=== PATIENT | male | born 1985 | race Caucasian/White ===

== ENCOUNTER 2016-10-03 17:28 | Emergency (ER) | payer SELFPAY ==
[~2016-10-03] VITALS: Ht 170.2 cm; Wt 71.3 kg
[~2016-10-03 17:28] MED LIST: BUTA1CAP57 PO
[2016-10-03] MEDS ORDERED: LORazepam 1MG TABLET PO ONE (18:30)
[2016-10-03] MEDS ORDERED: LORazepam 1MG TABLET ONE (18:42)
[2016-10-03 18:45] LABS: BLOOD UREA NITROGEN 8 mg/dL (7-18)
[2016-10-03 18:48] VITALS: BP 120/67
[2016-10-03 18:49] LABS: IS PT STATUS REG ER OR PRE ER? YES
[2016-10-03] MEDS ORDERED: POTASSIUM CHLORIDE 20 MEQ TAB.ER.PRT ONE (19:10)
[2016-10-03] MEDS ORDERED: POTASSIUM CHLORIDE 20 MEQ TAB.ER.PRT PO ONE (19:30)
== END 2016-10-03 19:45 | disposition home or self-care (01) ==
LOC: ED 19:36
DX: F41.1 Generalized anxiety disorder (principal); R06.4 Hyperventilation; E87.6 Hypokalemia; J45.909 Unspecified asthma, uncomplicated; Z87.891 Personal history of nicotine dependence
CPT/HCPCS: 36415; 71010; 80048; 82040; 84484; 85025; 93005